=== PATIENT | male | born 2000 | race Two or more races ===

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

== ENCOUNTER 2024-06-15 15:46 | Emergency (ER) | payer MEDICAID ==
[~2024-06-15] VITALS: Ht 172.7 cm; Wt 134.1 kg
[2024-06-15 15:48] VITALS: BP 182/95; PULSE 94; RESP 16; TEMP 98.4; O2SAT 98
[2024-06-15] MEDS: TETanus/Pertussis (Acell)/Diphther VAC/PF (Tdap-Adult) 0.5ml syringe IMVAC ONE (17:11)
[2024-06-15] MEDS: LIDOcaine 1% W/epiNEPHrine 1:100,000 20ml vial SQ ONE (17:12)
== END 2024-06-15 18:31 | disposition home or self-care (01) ==
LOC: ER 15:46
DX: S81.811A Laceration without foreign body, right lower leg, initial encounter (principal); W26.8XXA Contact with other sharp object(s), not elsewhere classified, initial encounter; Y93.89 Activity, other specified; Y92.89 Other specified places as the place of occurrence of the external cause; Y99.8 Other external cause status
CPT/HCPCS: 12002; 90471; 90715; 99283; A6222; J3490; A6258; A6449

== ENCOUNTER 2024-12-18 08:29 | Day surgery (SDC) | payer MEDICAID ==
[2024-12-13 14:06] LABS: BASOPHILS # (AUTO) 0.1 X10'3 (0-0.2); BASOPHILS % (AUTO) 0.4 % (0-1); EOSINOPHILS # (AUTO) 0.2 X10'3 (0-0.9); EOSINOPHILS % (AUTO) 1.8 % (0-6); LYMPHOCYTES # (AUTO) 5.1 X10'3 (1.1-4.8); LYMPHOCYTES % (AUTO) 36.8 % (21-51); MEAN CORPUSCULAR HEMOGLOBIN 29.3 PG (27.0-31.0); MEAN CORPUSCULAR HGB CONC 34.1 g/dL (33.0-36.5); MEAN CORPUSCULAR VOLUME 85.8 FL (78-98); MEAN PLATELET VOLUME 8.3 FL (7.4-10.4); MONOCYTES % (AUTO) 7.5 % (2-12); NEUTROPHILS # (AUTO) 7.4 X10'3 (1.8-7.7); NEUTROPHILS % (AUTO) 53.5 % (42-75); PRE OP HEMATOCRIT 45.6 % (42.0-52.0); PRE OP HEMOGLOBIN 15.6 g/dL (14.0-17.9); PRE OP PLATELET COUNT 392 X10'3 (140-440); PRE OP WHITE BLOOD COUNT 13.8 10'3 (4.8-10.8); RED BLOOD COUNT 5.31 X10'6 (4.70-6.10); RED CELL DISTRIBUTION WIDTH 12.6 % (11.5-14.5)
[2024-12-13 14:28] LABS: ALBUMIN/GLOBULIN RATIO 0.9 (1.1-1.5); ALKALINE PHOSPHATASE 81 IU/L (46-116); BLOOD UREA NITROGEN 14 MG/DL (7-18); BUN/CREATININE RATIO 17.3 (10.0-20.0); CALCIUM 9.1 MG/DL (8.5-10.1); CHLORIDE 107 MMOL/L (99-107); CREATININE 0.81 MG/DL (0.60-1.10); PRE OP ALT 52 U/L (30-65); PRE OP ANION GAP 5 (8-16); PRE OP AST 24 U/L (10-37); PRE OP BILIRUB, TOTAL 0.2 MG/DL (0.0-1.0); PRE OP SODIUM 144 MMOL/L (135-145); TOTAL CARBON DIOXIDE 31.8 MMOL/L (24-32); TOTAL PROTEIN 8.4 G/DL (6.4-8.2); eGFR > 90 ML/MIN
[2024-12-13 14:31] LABS: PRE OP GLUCOSE 60 MG/DL (70-104)
[2024-12-13 14:32] LABS: PRE OP POTASSIUM 3.9 MMOL/L (3.4-5.1)
[~2024-12-18] VITALS: Ht 172.7 cm; Wt 141.0 kg
[2024-12-18] VITALS (13 sets, daily range): BP systolic 105–129; BP diastolic 60–87; PULSE 65–79; RESP 14–22; TEMP 98; O2SAT 97–100
[2024-12-18] MEDS: DOCUMENT DATE & TIME OF BETA-BLOCKER PO ONE (05:30)
[2024-12-18] MEDS: ceFAZolin 2gm in dextrose, iso 50 ML IV ONE (05:30)
[~2024-12-18 08:29] MED LIST: ALBU18HF2 INH; BUPR-561 PO; CHOL20002 PO; ESCI20TA39 PO; IBUP-1985 PO; PROP10TA10 PO; VILO200C PO
[2024-12-18] MEDS: famotidine 20mg tablet PO ONE (09:15)
[2024-12-18] MEDS: ringers solution, lacted 1,000 ML IV SCH (09:15)
[2024-12-18] MEDS ORDERED: proCHLORperazine 10 MG/2 ml inj IV PRN (10:35)
[2024-12-18] MEDS ORDERED: hydrALAZINE 20mg/ml inj. IV PRN (10:35)
[2024-12-18] MEDS ORDERED: ondansetron/PF 4mg/2ml inj IV PRN (10:35)
[2024-12-18] MEDS ORDERED: morphine 2 MG/ML inj. syringe IV PRN (10:35)
[2024-12-18] MEDS ORDERED: acetaminophen 1,000mg/100ml IV 100 ML IV PRN (10:35)
[2024-12-18] MEDS ORDERED: morphine 4 MG/ML inj SYRINge IV PRN (10:35)
[2024-12-18] MEDS ORDERED: ringers solution, lacted 1,000 ML IV SCH (10:35)
[2024-12-18] MEDS ORDERED: labetalol 20mg/4ml (5mg/ml) syringe IV PRN (10:35)
[2024-12-18] MEDS ORDERED: HYDROmorphone/PF 0.2 MG/ML SYRINGE IV PRN ×2 (10:35)
[2024-12-18] MEDS ORDERED: fentaNYL/PF 50MCG/1 ML 2ML syringe ONE (11:19)
[2024-12-18] MEDS ORDERED: midazolam 1 mg/ML 2ml injection ONE (11:25)
[2024-12-18] MEDS ORDERED: 0.9 % SODIUM CHLORIDE 10 ML VIAL ONE (11:25)
[2024-12-18] MEDS ORDERED: ceFAZolin 1000mg inj ONE (11:25)
[2024-12-18] MEDS ORDERED: propofol inj 20 ML IV ONE (11:25)
== END 2024-12-18 13:44 | disposition home or self-care (01) ==
LOC: PAS 08:29
PROVIDERS: ATTEND Orthopaedic Surgery Hand Surgery
DX: G56.02 Carpal tunnel syndrome, left upper limb (principal); G47.33 Obstructive sleep apnea (adult) (pediatric); F32.A Depression, unspecified; F41.9 Anxiety disorder, unspecified; G47.30 Sleep apnea, unspecified; F90.9 Attention-deficit hyperactivity disorder, unspecified type; M23.52 Chronic instability of knee, left knee; Z83.3 Family history of diabetes mellitus; E66.9 Obesity, unspecified; Z79.899 Other long term (current) drug therapy; Z68.42 Body mass index [BMI] 45.0-49.9, adult
CPT/HCPCS: 29848; 36415; 80053; 82948; 85025; 93005; J0690; J2250; J2704; J3010; J7030; J7120; Z7506; Z7512; A4215; A6449; A7000